=== PATIENT | female | born 1935 | race Caucasian/White ===

== ENCOUNTER 2019-05-16 09:21 | Inpatient (IN) | payer OTHER ==
[~2019-05-16] VITALS: Ht 152.4 cm; Wt 59.4 kg
[~2019-05-16 09:21] MED LIST: ARMOUR THYROID30 M1 PO; BYSTOLIC 5 MG5 M1 PO; ELIQUIS5 MG PO; ESTRACE2 MG PO; GEMFIBROZIL 60600 MG PO; IMITREX 50 MG T50 MG PO; MOBIC15 MG PO; PROPAFENONE 15150 MG PO; RESTORIL30 MG PO; [UNRECOGNIZED DRUG - OTHER] PO
[2019-05-16 09:24] VITALS: BP 183/80
[2019-05-16] MEDS ORDERED: IMDUR 30 MG TAB30 M1 PO (09:28)
[2019-05-16] MEDS ORDERED: NORVASC5 MG PO (09:28)
[2019-05-16 10:20] LABS: ABSOLUTE MONOCYTES 0.4 thou/uL (0.0-1.2); ABSOLUTE NEUTROPHILS 5.7 thou/uL (1.6-8.1); BASOPHILS 0.3 %; EOSINOPHILS 0.7 %; HEMATOCRIT 38.5 % (37.0-47.0); HEMOGLOBIN 12.9 gm/dL (12.0-15.0); LYMPHOCYTES 14.1 %; MCH 32.1 pg (26.0-34.0); MCHC 33.5 g/dL (28.0-37.0); MCV 95.9 fL (80.0-100.0); MONOCYTES 5.3 %; MPV 6.8 fl. (7.2-11.1); NUCLEATED RBCS 0 /100WBC; PLATELET COUNT* 202 thou/uL (150-400); POLYS 79.6 %; RBC 4.02 mil/uL (4.20-5.00); RDW-CV 12.8 % (10.5-14.5); WBC 7.2 thou/uL (4.0-11.0)
[2019-05-16 10:34] LABS: APTT 26.4 Seconds (25.0-31.3)
[2019-05-16 10:37] LABS: URINE BILIRUBIN NEGATIVE (Negative); URINE BLOOD NEGATIVE (Negative); URINE CLARITY CLEAR; URINE COLOR YELLOW; URINE GLUCOSE-RANDOM NEGATIVE (Negative); URINE KETONES NEGATIVE (Negative); URINE LEUKOCYTES-REFLEX NEGATIVE (Negative); URINE NITRITE-REFLEX NEGATIVE (Negative); URINE PROTEIN NEGATIVE (Negative); URINE UROBILINOGEN 0.2 E.U./dl (0.2-1.0)
[2019-05-16 10:50] LABS: ANION GAP 11 mmol/L (7-16); BUN 22 mg/dL (7-18); CALCIUM 8.4 mg/dL (8.5-10.1); CHLORIDE 101 mmol/L (98-107); CO2 23 mmol/L (21-32); CREATININE 1.1 mg/dL (0.6-1.3); GLUCOSE 102 mg/dL (70-99); POTASSIUM 3.8 mmol/L (3.5-5.1); SODIUM 135 mmol/L (136-145)
[2019-05-16 10:59] LABS: ALBUMIN 3.2 g/dL (3.4-5.0); ALKALINE PHOSPHATASE 68 U/L (46-116); SGOT 14 U/L (15-37); SGPT 16 U/L (30-65); TOTAL BILIRUBIN 0.5 mg/dL (<0.1-1.0); TOTAL PROTEIN 6.3 g/dL (6.4-8.2); TROPONIN-I LEVEL <0.06 ng/mL (<0.06)
[2019-05-16 14:40] VITALS: BP 137/68
[2019-05-16 14:50] VITALS: BP 132/55
[2019-05-16 18:45] VITALS: BP 140/72
[2019-05-16 19:00] VITALS: BP 134/63
--- NOTE | 2019-05-16 19:11 | CARD ---
[address] [address] CARDIAC CATH REPORT Name: JAMEE ODELL Room: [address] Yimi#: [id number] Admission: 05/16/19 Attend Phys: Jack Kirk, Discharge: Date of : 37 Report #: [id number] THIS REPORT FOR: //name// APPROVED REPORT Study performed: 05/16/2019 16:14:04 Patient Details Patient Status: Observation Room #: Event Personnel Dr. Solis Procedures Performed Left heart catheterization left [facility] IV selective coronary angiography and percutaneous coronary intervention with atherectomy and stenting of the first diagonal angioplasty and stenting of the mid LAD Indication Unstable angina Risk Factors Hypercholesterolemia, Hypertension Admission/Lab Medications/Medications given during procedure Angiomax bolus and infusion Procedure Narrative The patient was brought electively to the Cardiac Catheterization Laboratory and was prepped and draped in a sterile manner. The right femoral was infiltrated with 2% Lidocaine subcutaneous anesthesia. A 6 Norwegian sheath was inserted into the right femoral artery. Coronary angiography was performed using coronary diagnostic catheters. The right coronary system was accessed and visualized with a Diagnostic catheter. The left ventricle was accessed and visualized with a Diagnostic catheter. Left ventricular/Aortic Valve gradient assessed via catheter pullback. Closure device was deployed with a 6 Fr . The patient tolerated the procedure well and there were no complications associated with the procedure. There was no hematoma. Coronary Angiography The patient's coronary anatomy is right dominant. Diagnostic Cath [address] [address] CARDIAC CATH REPORT Name: JAMEE ODELL Jayme Room: [address] Yimi#: [id number] Admission: 05/16/19 Attend Phys: Jack Kirk, Discharge: Date of : 37 Report #: [id number] Left Main 0% narrowing LAD 20% proximal narrowing with 80% tubular mid vessel stenosis and 75% ostial first diagonal stenosis Circumflex Nondominant vessel with 30% mid vessel narrowing Right Coronary Large dominant vessel with 50% proximal narrowing which appeared to reflect catheter induced spasm Left Ventriculography The left ventricle is normal in size with normal contractility. The left ventricular ejection fraction is estimated to be 65-70%. Left ventricular wall motion abnormalities are not present. There is no mitral insufficiency. Hemodynamics The aortic pressure is 160/70 mmHg with a mean of 94 mmHg. The left ventricular end diastolic pressure is 12 mmHg. There was no gradient across the aortic valve upon pullback. PCI Technique Lesion Anticoagulation was achieved with Angiomax. Percutaneous coronary intervention was performed on the mid LAD. The lesion stenosis prior to intervention was 80% with CALDERON 3 flow. BALLOON DILATION A Balloon catheter 2.25 x 15 mm trek was inserted and inflated up to 12atm for 15seconds. STENT DEPLOYMENT A drug-eluting stent 2.5 x 30 mm ger was inserted and inflated up to 12atm for seconds. POST STENT DEPLOYMENT BALLOON DILATION A Balloon catheter 2.25 x 8 NC trek was inserted and inflated up to 15atm for 10seconds. Final angiography reveals 0 % stenosis with CALDERON 3 flow. PCI Technique Lesion 2 Percutaneous coronary intervention was performed on the ostium of the first diagonal. The lesion stenosis prior to intervention was 75% with CALDERON 3 flow. Balloon Dilation A Balloon catheter 2.0 x 10angiosculpt scoring balloon was inserted and inflated up to 14atm [place] [address] CARDIAC CATH REPORT Name: JAMEE ODELL Room: [address] M.R.#: [id number] Admission: 05/16/19 Attend Phys: Jack Kirk, Discharge: Date of : 37 Report #: [id number] Stent Deployment A drug-eluting stent 2.0 x 8 mm ger was inserted and inflated up to 12atm for 10seconds. Final angiography reveals 0 % stenosis with CALDERON 3 flow. Comments The bifurcation intervention was complex requiring significant lesion preparation with atherotomy /atherectomy of the coronary ostium of the first diagonal Conclusion #1 significant CAD reflected by A 80% tubular mid LAD stenosis with 75% ostial first diagonal stenosis B 30% mid circumflex narrowing C 50% proximal dominant right coronary artery narrowing which appeared to reflect catheter induced spasm #2 normal left ventricular systolic function estimated ejection fraction being 65-70% #3 modest systemic systolic hypertension #4 successful percutaneous coronary intervention with atherotomy/ atherectomy and stenting of the 75% stenosis of the first diagonal branch of the LAD with 0% residual narrowing #5 successful angioplasty with stenting of the mid LAD with 0% residual narrowing and CALDERON-3 flow the distal vessel Recommendations Cardiac Risk Reduction Program Aggressive Medical Therapy Medications Administered Aspirin (any) [place] [address] CARDIAC CATH REPORT Name: ANSHUWilmarJAMEE Room: [address] Yimi#: [id number] Admission: 05/16/19 Attend Phys: Jack Kirk, Discharge: Date of : 37 Report #: [id number] Diagnostic Cath Approved by: Cliff Solis MD Date/Time: 05/16/2019 19:06:56 <ELECTRONICALLY SIGNED> By: Cliff Solis MD, FACC 05/16/191910 10 10Cliff Solis MD, FACC /INF
[2019-05-16 20:00] VITALS: BP 110/62
[2019-05-17] VITALS (9 sets, daily range): BP systolic 115–143; BP diastolic 47–64
[2019-05-17 05:17] LABS: HEMATOCRIT 38.1 % (37.0-47.0); HEMOGLOBIN 12.8 gm/dL (12.0-15.0); MCH 32.1 pg (26.0-34.0); MCHC 33.7 g/dL (28.0-37.0); MCV 95.4 fL (80.0-100.0); MPV 7.2 fl. (7.2-11.1); RBC 3.99 mil/uL (4.20-5.00); RDW-CV 12.7 % (10.5-14.5); WBC 7.3 thou/uL (4.0-11.0)
[2019-05-17 05:38] LABS: ALBUMIN 2.8 g/dL (3.4-5.0); ALKALINE PHOSPHATASE 64 U/L (46-116); ANION GAP 9 mmol/L (7-16); BUN 16 mg/dL (7-18); CALCIUM 8.2 mg/dL (8.5-10.1); CHLORIDE 105 mmol/L (98-107); CHOLESTEROL 167 mg/dL (<200); CO2 24 mmol/L (21-32); CREATININE 0.9 mg/dL (0.6-1.3); GLUCOSE 89 mg/dL (70-99); HDL CHOLESTEROL 74 mg/dL (>40); LDL CHOLESTEROL 69 mg/dL (<100); POTASSIUM 3.7 mmol/L (3.5-5.1); SGOT 20 U/L (15-37); SGPT 15 U/L (30-65); SODIUM 138 mmol/L (136-145); TC:HDL 2.3 Ratio (Not establshd); TOTAL BILIRUBIN 0.9 mg/dL (<0.1-1.0); TOTAL PROTEIN 6.2 g/dL (6.4-8.2); TRIGLYCERIDE 124 mg/dL (<150); VLDL 25 mg/dL (<40)
[2019-05-17 05:41] LABS: SERUM ASSESSMENT Clear
[2019-05-17 05:44] LABS: TROPONIN-I LEVEL 1.28 ng/mL (<0.06)
--- NOTE | 2019-05-17 16:56 | EKG ---
[place] [address] ELECTROCARDIOGRAM REPORT Name: JAMEE ODELL Room: [address] ADM IN [facility]#: [id number] Admission: 05/16/19 Attend Phys: Jack Kirk, Discharge: Date of : 37 Report #: [id number] THIS REPORT FOR: //name// [facility] ED Test Date: 2019-05-16 Test Time: 09:30:23 Pat Name: JAMEE KEFRANNIEWilmar Department: Room: [facility] Gender: F Telecom Manager: : 1935 Requested By: Sabra Goddard Order Number: [id number] MD: Valentino Cobos Measurements Intervals [place] Rate: 93 P: 39 WI: 146 QRS: -28 QRSD: 77 T: 135 QT: 316 QTc: 393 Interpretive Statements Sinus rhythm Borderline left axis deviation Nonspecific repol abnormality, diffuse leads Compared to ECG 04/22/2019 08:19:17 Early repolarization now present Electronically Signed On 05-17-2019 16:56:10 CDT by Valentino Cobos [email or web address] <ELECTRONICALLY SIGNED> By: Valentino Cobos MD, [facility] 05/17/19 1656 0930 Valentino Cobos MD, [facility] /EPI
--- NOTE | 2019-05-17 17:07 | EKG ---
[place] [address] ELECTROCARDIOGRAM REPORT Name: JAMEE ODELL Room: [address] ADM IN [facility].#: [id number] Admission: 05/16/19 Attend Phys: Jack Kirk, Discharge: Date of : 37 Report #: [id number] THIS REPORT FOR: //name// [facility] Test Date: 2019-05-16 Test Time: 18:58:59 Pat Name: JAMEE ODELL Department: Room: [address] Gender: F Compliance Mgr: ANTOINE : 1935 Requested By: Cliff Solis Order Number: [id number] Patsy MD: Valentino Cobos Measurements Intervals [place] Rate: 76 P: 54 PA: 148 QRS: -28 QRSD: 82 T: 29 QT: 429 QTc: 483 Interpretive Statements Sinus rhythm Borderline left axis deviation artifact noted Electronically Signed On 05-17-2019 17:07:40 CDT by Valentino Cobos [email or web address] <ELECTRONICALLY SIGNED> By: Valentino Cobos MD, [facility] 05/17/19 1707 1858 1858 Valentino Cobos MD, FACC /EPI
--- NOTE | 2019-05-17 17:12 | EKG ---
[place] [address] ELECTROCARDIOGRAM REPORT Name: JAMEE ODELL Room: [address] ADM IN [facility].#: [id number] Admission: 05/16/19 Attend Phys: Jack Kirk, Discharge: Date of : 37 Report #: [id number] THIS REPORT FOR: //name// [facility] Test Date: 2019-05-17 Test Time: 04:47:46 Pat Name: JAMEE BRASHERWilmar Department: Room: [address] Gender: F Ibm Bpm Developer: SAGAR : 1935 Requested By: Cliff Solis Order Number: [id number] Patsy MD: Valentino Cobos Measurements Intervals [place] Rate: 73 P: 54 [place]: 153 QRS: -26 QRSD: 74 T: 48 QT: 399 QTc: 440 Interpretive Statements Sinus rhythm Borderline left axis deviation Borderline T wave abnormalities Electronically Signed On 05-17-2019 17:12:27 CDT by Valentino Cobos [email or web address] <ELECTRONICALLY SIGNED> By: Valentino Cobos MD, [facility] 05/17/19 1712 0447 0447 Valentino Cobos MD, FACC /EPI
[2019-05-17 23:03] LABS: URINE BILIRUBIN NEGATIVE (Negative); URINE BLOOD 1+ (Negative); URINE CLARITY CLEAR; URINE COLOR YELLOW; URINE GLUCOSE-RANDOM NEGATIVE (Negative); URINE KETONES NEGATIVE (Negative); URINE LEUKOCYTES-REFLEX 1+ (Negative); URINE NITRITE-REFLEX NEGATIVE (Negative); URINE PROTEIN NEGATIVE (Negative); URINE SPECIFIC GRAVITY <= 1.005 (1.005-1.030); URINE UROBILINOGEN 0.2 E.U./dl (0.2-1.0)
[2019-05-17 23:41] LABS: CASTS None Seen /LPF (None Seen); SQUAMOUS >10 Many /LPF (0-3)
[2019-05-17 23:44] LABS: URINE RBC 0-2 Rare /HPF (0-2); URINE WBC-REFLEX 0-5 Rare /HPF (0-5)
[2019-05-17 23:45] LABS: BACTERIA-REFLEX >30 Many /HPF (None Seen); CRYSTALS None Seen /LPF (None Seen)
[2019-05-18] VITALS: BP 143/59
[2019-05-18 03:59] VITALS: BP 135/62
[2019-05-18 08:12] VITALS: BP 160/84
[2019-05-18] MEDS ORDERED: NITROGLYCERIN0.4 MG SUBLING (10:11)
[2019-05-18] MEDS ORDERED: BRILINTA90 MG PO (10:11)
[2019-05-18] MEDS ORDERED: CIPRO500 MG PO (10:27)
--- NOTE | 2019-05-18 11:07 | EKG ---
[place] [address] ELECTROCARDIOGRAM REPORT Name: JAMEE ODELL Room: [address] ADM IN [facility].#: [id number] Admission: 05/16/19 Attend Phys: Jack Kirk, Discharge: Date of : 37 Report #: [id number] THIS REPORT FOR: //name// [facility] Test Date: 2019-05-17 Test Time: 15:46:58 Pat Name: JAMEE ODELL Department: Room: [address] Gender: F Web Communications Specialist: SHONDA : 1935 Requested By: Renato Martinez Order Number: [id number] Patsy MD: Valentino Cobos Measurements Intervals [place] Rate: 79 P: 49 MT: 146 QRS: -20 QRSD: 69 T: 33 QT: 549 QTc: 630 Interpretive Statements Sinus rhythm Borderline left axis deviation RSR' in V1 or V2, probably normal variant Borderline T wave abnormalities Prolonged QT interval Baseline wander in lead(s) V6 Compared to ECG 05/17/2019 04:47:46 Prolonged QT interval now present T-wave abnormality still present Electronically Signed On 05-18-2019 11:07:12 CDT by Valentino Cobos [email or web address] <ELECTRONICALLY SIGNED> By: Valentino Cobos MD, FAC 05/18/19 1107 1546 1546 Valentino Cobos MD, [facility] /EPI
[2019-05-18 14:50] VITALS: BP 115/58
--- NOTE | 2019-06-01 09:43 | CON ---
[address] [address] CONSULTATION Name: JAMEE ODELL Room: [address] IN [facility]#: [id number] Admission: 05/16/19 Attend Phys: Jack Kirk, Discharge: 05/18/19 Date of : 37 Report #: [id number] THIS REPORT FOR: //name// CC: Juan Kirk DATE OF SERVICE: 05/16/2019 Thank you for allowing us to see the patient in cardiovascular assessment. As you know, she is a pleasant 83-year-old female with a recent history of paroxysmal atrial fibrillation. That has been controlled and she is no longer on antiarrhythmic therapy. She has been continued on Eliquis on low dose at 2.5 mg b.i.d. She has a creatinine of 1.1, borderline criteria for reduction in dose and that her weight is slightly less than 60 kilograms and her age is 83 years. For the last 2 days, she has had waxing and waning discomfort, which she describes as a burning in her chest and achiness in the left arm coming up into the jaw. She has had several episodes, which wax and wane. There has been no persistent discomfort. EKG in the ER revealed inferior and anterolateral ST segment depression suggestive of ischemia. She had been scheduled for a stress testing. MEDICATIONS: Have included Eliquis 2.5 mg b.i.d., first dose at 0600 this morning; Thyroid Metter 30 mg daily; amlodipine 10 mg daily; Imdur 30 mg daily. PAST MEDICAL HISTORY: Remarkable for hypertension and hypothyroidism. SOCIAL HISTORY: She is a nonsmoker. PHYSICAL EXAMINATION: GENERAL: Demonstrates an elderly female, who is alert, appropriate, in mild distress. VITAL SIGNS: Blood pressure is 140/70, pulse rate is 84, respirations are 18 per minute. NECK: Jugular venous pressure is normal. CHEST: Clear. CARDIAC: Reveals normal first and second heart sounds with a soft systolic murmur. ABDOMEN: Mildly obese. EXTREMITIES: Without edema with intact femoral, pedal and radial pulses. EKG reveals sinus rhythm with inferior and anterolateral ST-segment depression [place] [address] CONSULTATION Name: CASSJAMEE Jayme Room: [address]#: [id number] Admission: 05/16/19 Attend Phys: Jack Kirk, Discharge: 05/18/19 Date of : 37 Report #: [id number] IMPRESSION: 1. Unstable angina. 2. Hypertension. 3. Paroxysmal atrial fibrillation. RECOMMENDATIONS: 1. Hold Eliquis. 2. Catheterization for recurrent angina. 3. Add beta-juan manuel to her regimen. 4. Add aspirin. LOCATION: The patient in [place]. CRITICAL CARE TIME: 35 minutes from 1505 to 1540. <ELECTRONICALLY SIGNED> By: Cliff Solis MD, [facility] 06/01/19 0943 1538 2153John Leigh Ann Solis MD, [facility] /nt
== END 2019-05-18 13:05 | disposition home health service (06) | DRG 247 ==
LOC: M.ERS 09:21 → M.TBA-ER 11:30 → M.2W 11:30
PROVIDERS: Internal Medicine; Physician Assistant; ADMIT Family Medicine
DX: I25.110 Atherosclerotic heart disease of native coronary artery with unstable angina pectoris (principal); N39.0 Urinary tract infection, site not specified; M79.7 Fibromyalgia; I10 Essential (primary) hypertension; E78.00 Pure hypercholesterolemia, unspecified; I48.0 Paroxysmal atrial fibrillation; I34.0 Nonrheumatic mitral (valve) insufficiency; I49.5 Sick sinus syndrome; M17.12 Unilateral primary osteoarthritis, left knee; M47.894 Other spondylosis, thoracic region; E78.5 Hyperlipidemia, unspecified; E03.9 Hypothyroidism, unspecified; Z96.652 Presence of left artificial knee joint; Z90.710 Acquired absence of both cervix and uterus; Z90.49 Acquired absence of other specified parts of digestive tract; Z79.01 Long term (current) use of anticoagulants; Z79.899 Other long term (current) drug therapy; Z88.0 Allergy status to penicillin; Z88.2 Allergy status to sulfonamides; Z88.8 Allergy status to other drugs, medicaments and biological substances; Z82.49 Family history of ischemic heart disease and other diseases of the circulatory system

== ENCOUNTER → 2020-05-18 | Outpatient (CLI) | payer OTHER ==
[~2020-05-18] MED LIST changes: +BRILINTA90 MG PO; +CIPRO500 MG PO; +IMDUR 30 MG TAB30 M1 PO; +NITROGLYCERIN0.4 MG SUBLING; +NORVASC5 MG PO
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
== END ==
LOC: M.NUC 12-16 07:19
PROVIDERS: ATTEND Internal Medicine
DX: I25.10 Atherosclerotic heart disease of native coronary artery without angina pectoris (principal); Z95.5 Presence of coronary angioplasty implant and graft

== ENCOUNTER 2020-09-15 11:03 | Emergency (ER) | payer OTHER ==
[~2020-09-15] VITALS: Ht 157.5 cm; Wt 61.9 kg
[2020-09-15] MEDS ORDERED: ASA81BEC PO (11:12)
[2020-09-15 11:31] LABS: ABSOLUTE LYMPHOCYTES 1.1 thou/uL (0.8-5.3); ABSOLUTE MONOCYTES 0.3 thou/uL (0.0-1.2); ABSOLUTE NEUTROPHILS 7.1 thou/uL (1.6-8.1); BASOPHILS 0.2 %; EOSINOPHILS 0.3 %; HEMATOCRIT 38.8 % (37.0-47.0); HEMOGLOBIN 13.1 gm/dL (12.0-15.0); LYMPHOCYTES 13.5 %; MCH 31.6 pg (26.0-34.0); MCHC 33.7 g/dL (28.0-37.0); MCV 93.8 fL (80.0-100.0); MONOCYTES 3.2 %; MPV 6.9 fl. (7.2-11.1); NUCLEATED RBCS 0 /100WBC; PLATELET COUNT* 182 thou/uL (150-400); POLYS 82.8 %; RBC 4.14 mil/uL (4.20-5.00); RDW-CV 12.8 % (10.5-14.5); WBC 8.5 thou/uL (4.0-11.0)
[2020-09-15 11:44] LABS: CALCIUM 7.9 mg/dL (8.5-10.1); CREATININE 1.2 mg/dL (0.6-1.3); POTASSIUM 3.2 mmol/L (3.5-5.1)
[2020-09-15 11:47] LABS: APTT 23.7 Seconds (25.0-31.3); PROTIME 10.2 Seconds (9.20-11.50)
[2020-09-15 11:54] LABS: ALBUMIN 3.2 g/dL (3.4-5.0); TOTAL BILIRUBIN 0.5 mg/dL (<0.1-1.0); TOTAL PROTEIN 6.8 g/dL (6.4-8.2)
[2020-09-15 13:40] VITALS: BP 141/58
--- NOTE | 2020-09-16 09:02 | EKG ---
[place] [address] ELECTROCARDIOGRAM REPORT Name: JAMEE ODELL Room: [facility]#: [id number] Admission: 09/15/20 Attend Phys: Discharge: 09/15/20 Date of : 37 Date of Service: 09/15/20 1108 Report #: [id number] THIS REPORT FOR: //name// [facility] ED Test Date: 2020-09-15 Test Time: 11:08:27 Pat Name: JAMEE ANSHUWilmar Department: Room: Gender: Warehouse Lead: : 1935 Requested By: Ignacia Deluca Order Number: [id number] MD: Valentino Cobos Measurements Intervals [place] Rate: 101 P: 72 OR: 136 QRS: 18 QRSD: 72 T: 78 QT: 355 QTc: 461 Interpretive Statements Sinus tachycardia poor r wave progression RSR' in V1 or V2, probably normal variant Borderline repolarization abnormality Baseline wander in lead(s) V1 Compared to ECG 05/17/2019 15:46:58 Sinus rhythm no longer present Prolonged QT interval no longer present Electronically Signed On 09-16-2020 9:01:54 LUMBER KILN OPERATOR by Valentino Cobos [email or web address] <ELECTRONICALLY SIGNED> By: Valentino Cobos MD, FACC 09/16/20 0901 1108 1108 Valentino Cobos MD, FACC /EPI
== END 2020-09-15 13:40 | disposition left against medical advice (07) ==
LOC: M.ERS 11:03
PROVIDERS: Personal Emergency Response Attendant
DX: R07.89 Other chest pain (principal); R68.84 Jaw pain; M79.18 Myalgia, other site; M79.7 Fibromyalgia; I10 Essential (primary) hypertension; E78.00 Pure hypercholesterolemia, unspecified; I48.0 Paroxysmal atrial fibrillation; E78.5 Hyperlipidemia, unspecified; Z88.0 Allergy status to penicillin; Z88.2 Allergy status to sulfonamides; Z88.1 Allergy status to other antibiotic agents; Z88.8 Allergy status to other drugs, medicaments and biological substances; Z90.49 Acquired absence of other specified parts of digestive tract; Z90.710 Acquired absence of both cervix and uterus; Z96.652 Presence of left artificial knee joint